=== PATIENT | male | born 1965 | race African-American/Black ===

== ENCOUNTER 2017-08-12 21:54 | Emergency (ER) | payer MEDICAID ==
[~2017-08-12 21:54] MED LIST: LACT10SO PO; NO HOME MEDS
== END 2017-08-12 23:03 | disposition left against medical advice (07) ==
LOC: ER 21:55
DX: M79.604 Pain in right leg (principal); Z53.21 Procedure and treatment not carried out due to patient leaving prior to being seen by health care provider

== ENCOUNTER 2017-08-20 22:45 | Emergency (ER) | payer MEDICAID ==
[~2017-08-20] VITALS: Ht 180.3 cm; Wt 93.6 kg
[2017-08-20] MEDS ORDERED: acetaminophen 325mg tablet PO ONE (23:10)
[2017-08-20] MEDS ORDERED: diphenhydrAMINE 25mg capsule PO ONE (23:10)
[2017-08-20 23:21] LABS: BASOPHILS % (AUTO) 0.6 % (0-1); EOSINOPHILS # (AUTO) 0.6 X10'3 (0-0.9); EOSINOPHILS % (AUTO) 8.9 % (0-6); HEMATOCRIT 44.4 % (42.0-52.0); HEMOGLOBIN 15.1 g/dl (14.0-17.9); LYMPHOCYTES # (AUTO) 1.9 X10'3 (1.1-4.8); LYMPHOCYTES % (AUTO) 27.8 % (21-51); MEAN CORPUSCULAR HGB CONC 34.1 % (33.0-36.5); MEAN PLATELET VOLUME 7.6 FL (7.4-10.4); MONOCYTES # (AUTO) 0.5 X10'3 (0-0.9); NEUTROPHILS # (AUTO) 3.8 X10'3 (1.8-7.7); NEUTROPHILS % (AUTO) 55.7 % (42-75); PLATELET COUNT 282 X10'3 (140-440); RED BLOOD COUNT 5.04 X10'6 (4.70-6.10); RED CELL DISTRIBUTION WIDTH 14.4 % (11.5-14.5); WHITE BLOOD COUNT 6.8 X10'3 (4.5-11.0)
[2017-08-20 23:29] LABS: PARTIAL THROMBOPLASTIN TIME 29 SECONDS (22-32); PROTHROMBIN TIME 10.3 SECONDS (9.0-12.0)
[2017-08-20 23:39] LABS: ALANINE AMINOTRANSFERASE 30 U/L (12-78); ALBUMIN 3.1 G/DL (3.4-5.0); ALBUMIN/GLOBULIN RATIO 0.8 (1.1-1.5); ALKALINE PHOSPHATASE 100 IU/L (46-116); ANION GAP 6 (8-16); ASPARTATE AMINO TRANSFERASE 31 U/L (10-37); BILIRUBIN,TOTAL 0.4 MG/DL (0.1-1.0); BLOOD UREA NITROGEN 9 MG/DL (7-18); BUN/CREATININE RATIO 6.8 (5.4-32.0); CALCIUM 8.8 MG/DL (8.5-10.1); CHLORIDE 103 MMOL/L (99-107); CREATININE 1.33 MG/DL (0.60-1.10); GLUCOSE 96 MG/DL (70-104); POTASSIUM 4.1 MMOL/L (3.5-5.1); SODIUM 139 MMOL/L (135-145); TOTAL CARBON DIOXIDE 29.9 MMOL/L (24-32); TOTAL PROTEIN 7.1 G/DL (6.4-8.2); TROPONIN I < 0.04 NG/ML (0.0-0.05); eGFR 69 ML/MIN
[2017-08-21 00:30] LABS: CLARITY,URINE CLEAR (Clear); COLOR,URINE YELLOW (Yellow); GLUCOSE, URINE NEGATIVE (Neg); KETONES,URINE NEGATIVE (Neg); LEUKOCYTE ESTERASE ,URINE SMALL (Neg); NITRITES, URINE NEGATIVE (Neg); OCCULT BLOOD,URINE NEGATIVE (Neg); PH,URINE 5.5 (4.8-8.0); PROTEIN,URINE NEGATIVE (Neg); UROBILINOGEN,URINE 0.2 E.U/dL (0.2-1.0)
[2017-08-21 00:31] LABS: UA COLLECTION TYPE CLN CATCH MIDSTREAM
[2017-08-21 00:36] LABS: BACTERIA,URINE FEW /HPF (Neg); RBC,URINE 0-2 /HPF (0-2); SQUAMOUS EPITHELIAL CELL,UR MODERATE /LPF (FEW); WBC,URINE 20-30 /HPF (0-4)
[2017-08-21 00:39] VITALS: BP 117/80
== END 2017-08-21 00:41 | disposition home or self-care (01) ==
LOC: ER 22:53
DX: M79.604 Pain in right leg (principal); J45.909 Unspecified asthma, uncomplicated; I89.0 Lymphedema, not elsewhere classified; F12.10 Cannabis abuse, uncomplicated; Z56.0 Unemployment, unspecified; Z91.018 Allergy to other foods; Z79.899 Other long term (current) drug therapy
CPT/HCPCS: 36415; 71045; 80053; 81001; 83880; 84484; 85025; 85610; 85730; 99285; Q0163

== ENCOUNTER 2018-03-24 00:27 | Emergency (ER) | payer MEDICAID ==
[~2018-03-24] VITALS: Ht 180.3 cm; Wt 95.4 kg
[2018-03-24] MEDS ORDERED: acetaminophen 325mg tablet PO ONE (01:40)
[2018-03-24 02:36] VITALS: BP 100/70
[2018-03-25] MEDS ORDERED: RIVA15TA PO ×2 (05:05→06:58)
== END 2018-03-24 02:37 | disposition home or self-care (01) ==
LOC: ER 00:28
DX: M79.604 Pain in right leg (principal); R60.0 Localized edema; J45.909 Unspecified asthma, uncomplicated; F12.90 Cannabis use, unspecified, uncomplicated; Z56.0 Unemployment, unspecified; Z91.018 Allergy to other foods
CPT/HCPCS: 99282

== ENCOUNTER 2018-03-25 04:28 | Emergency (ER) | payer MEDICAID ==
[~2018-03-25] VITALS: Ht 180.3 cm; Wt 78.5 kg
[2018-03-25 04:38] VITALS: BP 119/75
[2018-03-25] MEDS ORDERED: RIVA15TA PO ×2 (05:05→06:58)
[2018-03-25] MEDS ORDERED: rivaroxaban 15mg tablet PO ONE (08:00)
== END 2018-03-25 07:30 | disposition home or self-care (01) ==
LOC: ER 04:29
DX: I89.0 Lymphedema, not elsewhere classified (principal); J45.909 Unspecified asthma, uncomplicated; Z56.0 Unemployment, unspecified; F12.90 Cannabis use, unspecified, uncomplicated; Z91.048 Other nonmedicinal substance allergy status
CPT/HCPCS: 99283

== ENCOUNTER 2018-03-28 03:08 | Emergency (ER) | payer MEDICAID ==
[~2018-03-28] VITALS: Ht 180.3 cm; Wt 97.7 kg
[~2018-03-28 03:08] MED LIST changes: +RIVA15TA PO
[2018-03-28 03:13] VITALS: BP 115/75
[2018-03-28] MEDS ORDERED: RIVA15TA PO (03:34)
== END 2018-03-28 05:15 | disposition home or self-care (01) ==
LOC: ER 03:08
DX: R60.0 Localized edema (principal); J45.909 Unspecified asthma, uncomplicated; F12.90 Cannabis use, unspecified, uncomplicated; Z91.018 Allergy to other foods; Z56.0 Unemployment, unspecified
CPT/HCPCS: 99281

== ENCOUNTER 2018-05-22 10:07 | Emergency (ER) | payer MEDICAID ==
[~2018-05-22] VITALS: Ht 180.3 cm; Wt 95.5 kg
[2018-05-22 10:17] VITALS: BP 116/78
[2018-05-22] MEDS ORDERED: METH4TAB81 PO (10:33)
== END 2018-05-22 10:38 | disposition home or self-care (01) ==
LOC: ER 10:07
DX: I89.0 Lymphedema, not elsewhere classified (principal); M70.61 Trochanteric bursitis, right hip; F12.90 Cannabis use, unspecified, uncomplicated; J45.909 Unspecified asthma, uncomplicated; Z56.0 Unemployment, unspecified; Z91.018 Allergy to other foods
CPT/HCPCS: 99283

== ENCOUNTER 2018-06-27 18:03 | Emergency (ER) | payer MEDICAID ==
[~2018-06-27] VITALS: Ht 180.3 cm; Wt 90.9 kg
[2018-06-27 18:38] VITALS: BP 157/97
[2018-06-27] MEDS ORDERED: cephalexin 250mg capsule PO ONE (20:45)
[2018-06-27] MEDS ORDERED: CEPH500C5 PO (20:48)
== END 2018-06-27 21:02 | disposition home or self-care (01) ==
LOC: ER 18:03
DX: L03.115 Cellulitis of right lower limb (principal); J45.909 Unspecified asthma, uncomplicated; F12.90 Cannabis use, unspecified, uncomplicated; I89.0 Lymphedema, not elsewhere classified; Z98.890 Other specified postprocedural states; Z56.0 Unemployment, unspecified; Z91.018 Allergy to other foods
CPT/HCPCS: 99284

== ENCOUNTER 2018-06-28 09:34 | Emergency (ER) | payer MEDICAID ==
[~2018-06-28] VITALS: Ht 180.3 cm; Wt 83.0 kg
[~2018-06-28 09:34] MED LIST changes: +CEPH500C5 PO; -LACT10SO PO; -NO HOME MEDS; -RIVA15TA PO
[2018-06-28 09:42] VITALS: BP 107/69
== END 2018-06-28 14:29 | disposition left against medical advice (07) ==
LOC: ER 09:35
DX: Z53.21 Procedure and treatment not carried out due to patient leaving prior to being seen by health care provider (principal)

== ENCOUNTER 2018-10-15 21:31 | Emergency (ER) | payer MEDICAID ==
[~2018-10-15] VITALS: Ht 180.3 cm; Wt 93.2 kg
[2018-10-15 21:43] VITALS: BP 117/71
[2018-10-15] MEDS ORDERED: CefTRIAXone 1000mg IM Kit (w/lidocaine diluent) IM ONE (23:45)
[2018-10-15] MEDS ORDERED: CEPH500C5 PO (23:45)
== END 2018-10-16 00:05 | disposition home or self-care (01) ==
LOC: ER 21:32
DX: M79.604 Pain in right leg (principal); J45.909 Unspecified asthma, uncomplicated; F12.90 Cannabis use, unspecified, uncomplicated; Z98.890 Other specified postprocedural states; Z56.0 Unemployment, unspecified; Z91.018 Allergy to other foods; Z79.899 Other long term (current) drug therapy
CPT/HCPCS: 96372; 99283; J0696

== ENCOUNTER 2025-02-16 05:19 | Emergency (ER) | payer MEDICAID ==
[~2025-02-16] VITALS: Ht 180.3 cm; Wt 74.6 kg
[2025-02-16 05:21] VITALS: TEMP 97.6
--- NOTE | 2025-02-16 06:30 | Physician Documentation ---
History of Present Illness General Chief Complaint: Mechanical Fall Stated Complaint: FALL/R HIP PAIN Time Seen by MD: 06:23 Primary Medical Doctor: Dr. jasmine Mode of Arrival: EMS History of Present Illness Initial Comments Patient is a 51-year-old male with a history of chronic lymphedema in the right lower extremity and he has a history of cellulitis in that leg. He suffers from frequent falls. He reports that he fell about 2:00 a.m. today and has right hip pain. He also reports that he is ambulatory. Medication Reconciliation Allergies: Coded Allergies: pork derived (porcine) (Verified Allergy, Unknown, 02/16/25) Uncoded Allergies: PENCILLIN (Allergy, Unknown, 02/16/25) Past Medical History Past Medical History: Asthma, *MUSCULOSKELETAL* Past Surgical History: no surgical history, other Smoking: Cigarettes, Other Alcohol Use: Occasionally Drug Use: marijuana Lives with: Spouse, Family Lives In: Home Occupation: unemployed, student Review of Systems ROS Constitutional: Denies chills, fatigue, fever, weight gain or weight loss. HEENT: Denies hearing loss, sinus pressure or visual changes. Respiratory: Denies cough, shortness of breath or wheezing. Cardiovascular: Denies chest pain, pain while walking (claudication), edema or palpitations. Gastrointestinal: Denies abdominal pain, blood in stool, constipation, diarrhea, heartburn, loss of appetite, nausea or vomiting. Genitourinary: Denies painful urination (dysuria), excessive amount of urine (polyuria) or urinary frequency. Metabolic/Endocrine: Denies cold intolerance, heat intolerance, excessive thirst (polydipsia) or excessive hunger (polyphagia). Neurological: Denies dizziness, extremity numbness, extremity weakness, headaches, seizures or tremors. Psychiatric: Denies anxiety or depression. Integumentary: Denies breast discharge, breast lump, hives, mole change(s), rash or skin lesion. Musculoskeletal: Right hip pain. Hematologic: Denies easily bleeding, easily bruises, lymphedema or issues with blood clots. Immunologic: Denies food allergies or seasonal allergies. Physical Exam Physical Exam Vital Signs: Temperature: 97.6, Source: Oral, Heart Rate: 93, Respiratory Rate: 18, BP: 123/94, Pulse Oximetry: 98, Weight: 74.600 Oxygen Flow Rate: 0 Physical Exam Physical Exam Vitals and nursing note reviewed. Constitutional: General: Patient is awake, alert, oriented x 4 in no acute distress and well appearing. Speech is clear and lucid. Appearance: Normal appearance. Patient is not ill-appearing, toxic-appearing or diaphoretic. HENT: Head: Normocephalic and atraumatic. Mouth/Throat: Mouth: Mucous membranes are moist. Pharynx: Oropharynx is clear. Eyes: General: No scleral icterus. Extraocular Movements: Extraocular movements intact. Pupils: Pupils are equal, round, and reactive to light. Neck: Supple, no Kernig or Brudzinski sign. Cardiovascular: Rate and Rhythm: Normal rate and regular rhythm. Heart sounds: No murmur heard. Pulmonary: Effort: No respiratory distress. Breath sounds: No wheezing, rhonchi or rales. Abdominal: General: There is no distension. Palpations: There is no fluid wave, hepatomegaly or mass. Tenderness: There is no abdominal tenderness. There is no guarding. Musculoskeletal: General: Entire right lower extremity is swollen (this is chronic). Skin: Coloration: Skin is not jaundiced. Findings: No erythema or rash. Neurological: Mental Status: Patient is alert. Progress Results/Orders Results/Orders Orders - JUSTIN HASSAN MD Hip Unilateral 2 Views (02/16/25 ) Completed Orders - JUSTIN HASSAN MD Hip Unilateral 2 Views (02/16/25 ) Vital Signs 02/16/25 02/16/25 02/16/25 02/16/25 05:21 05:29 06:18 06:20 Temp 97.6 Pulse 99 93 Resp 18 18 18 B/P (MAP) 121/90 123/94 (104) Pulse Ox 97 98 O2 Flow Rate 0 Departure Disposition: 01 HOME / SELF CARE / HOMELESS Impression: Primary Impression: Fall Condition: Stable Referrals: NO PRIMARY CARE PROVIDER (PCP) Education Educated: Patient Educated regarding: diagnosis Signature Scribe Signature: . Attestation: JUSTIN ALICIA MD Feb 16, 2025 06:30
--- NOTE | 2025-02-16 07:08 | RADIOLOGY REPORT ---
CLINICAL INDICATION: Fall, right hip pain (has chronic lymphedema) TECHNIQUE: DI HIP UNILATERAL 2 VIEWS Comparison: None FINDINGS/IMPRESSION: : There is no evidence of acute fracture or dislocation. Soft tissues are unremarkable. Moderate degenerative changes of bilateral hips, [id number].
[2025-02-16 08:03] VITALS: BP 134/91; PULSE 97; RESP 18; O2SAT 98
== END 2025-02-16 08:05 | disposition home or self-care (01) ==
LOC: ER 05:20
DX: M25.551 Pain in right hip (principal); J45.909 Unspecified asthma, uncomplicated; F12.90 Cannabis use, unspecified, uncomplicated; W19.XXXA Unspecified fall, initial encounter; Y93.89 Activity, other specified; Y92.89 Other specified places as the place of occurrence of the external cause; Y99.8 Other external cause status
CPT/HCPCS: 73502; 99284